=== PATIENT | male | born 1990 | race Caucasian/White ===

== ENCOUNTER 2017-04-01 01:16 | Emergency (ER) | payer BC ==
[~2017-04-01] VITALS: Ht 175.3 cm; Wt 70.5 kg
[2017-04-01 01:22] VITALS: Ht 175.3 cm; Wt 70.5 kg
[2017-04-01] MEDS ORDERED: HYDROmorphONE 1 MG/ML SYG IV STA (01:40)
[2017-04-01] MEDS ORDERED: ONDANSETRON 4 MG INJ IV STA (01:40)
--- NOTE | 2017-04-01 02:12 | RADRPT ---
PROCEDURE: ULTRASOUND LIMITED ABDOMEN CLINICAL INDICATION: 26-year-old male with abdominal pain. TECHNIQUE: Multiple sonographic of the right upper quadrant of the abdomen were obtained. The imag es were reviewed on a PACS workstation. COMPARISON: None. FINDINGS: The pancreas is partially visualized and is otherwise without abnormal echogenicity. The liver displays normal echogenicity. The liver measures 15.6 cm in length. No evidence of intrah epatic biliary ductal dilatation is seen. The portal and hepatic veins are unremarkable. The gallbladder contains echogenic sludge and multiple small shadowing stones. The gallbladder wall thickness is within normal limits measuring 2.6 mm. No pericholecystic fluid is seen. The common b ile duct measures 4.4 mm and is not dilated. The right kidney displays normal echogenicity. The right kidney measures 10.4 cm in length. No calie ctasis or hydronephrosis is seen. No free fluid is seen. IMPRESSION: Cholelithiasis. .Jose Armando Galindo MD, MD Date Time Electronically viewed and signed by .Jose Armando Galindo MD, on 04/01/2017 02:12 .M/
[2017-04-01 02:22] LABS: BASOPHILS % 0.3 % (0.0-2.0); EOSINOPHILS # 0.1 10^3/ul (0.0-0.5); EOSINOPHILS % 1.3 % (0.0-7.0); HEMATOCRIT 44.8 % (42.0-52.0); LYMPHOCYTES # 3.3 10^3/ul (0.8-2.9); LYMPHOCYTES % 49.2 % (15.0-51.0); MEAN CORPUSCULAR HEMOGLOBIN 31.2 pg (29.0-33.0); MEAN CORPUSCULAR HGB CONC 33.5 g/dl (32.0-37.0); MEAN CORPUSCULAR VOLUME 93.1 fl (82.0-101.0); MEAN PLATELET VOLUME 11.4 fl (7.4-10.4); MONOCYTE # 0.4 10^3/ul (0.3-0.9); MONOCYTES % 6.2 % (0.0-11.0); NEUTROPHILS % 42.9 % (39.0-77.0); PLATELET COUNT 181 10^3/UL (140-415); RED BLOOD COUNT 4.81 10^6/ul (4.70-6.10); RED CELL DISTRIBUTION WIDTH 12.4 % (11.5-14.5); WHITE BLOOD COUNT 6.8 10^3/ul (4.8-10.8)
[2017-04-01 02:43] LABS: ALBUMIN 4.7 g/dl (3.3-4.9); ALBUMIN/GLOBULIN RATIO 1.42; BILIRUBIN,INDIRECT 1.4 mg/dl (0-1.1); BILIRUBIN,TOTAL 1.4 mg/dl (0.2-1.3); CALCIUM 9.6 mg/dl (8.4-10.2); CREATININE 1.22 mg/dl (0.61-1.24)
[2017-04-01] MEDS ORDERED: DICY10CA60 PO (02:53)
[2017-04-01] MEDS ORDERED: HYDR-902 PO (02:53)
--- NOTE | 2017-04-01 02:57 | ERD ---
ER Documentation Chief Complaint Date/Time DATE: 04/01/17 TIME: 02:54 Chief Complaint epigastric pain x the last 30 mins HPI This is a 26-year-old male who has had a few months of epigastric pain. The patient had a CT scan of his abdomen and to sonograms but I cannot visualize the gallbladder because it was contracted. She is having the same flareup now with pain in epigastric region described as sharp and crampy and comes in waves. He is nauseated but no vomiting there is some radiation to the back. No diarrhea there is some bloating. Does not know if food makes it worse or better. No chest pain shortness of breath. ROS All systems reviewed and are negative except as per history of present illness. Medications Home Meds Active Scripts Dicyclomine Hcl* (Bentyl*) 10 Mg Capsule, 20 MG PO QID, #60 CAP Prov:SANDRA JACKSONSTEMANUELS Sonal DO 04/01/17 Hydrocodone/Acetaminophen ([place] 10-325 Tablet) 1 Each Tablet, 1 TAB PO Q6H Y for PAIN, #20 TAB Prov:MANUEL JACKSON DO 04/01/17 Allergies Allergies: Coded Allergies: No Known Allergy (Unverified , 04/01/17) PMhx/Soc Medical and Surgical Hx: pt denies Medical Hx, pt denies Surgical Hx History of Surgery: No Anesthesia Reaction: No Hx Neurological Disorder: No Hx Respiratory Disorders: No Hx Cardiac Disorders: No Hx Psychiatric Problems: No Hx Miscellaneous Medical Probl: No Hx Alcohol Use: No Hx Substance Use: No Hx Tobacco Use: No Smoking Status: Never smoker FmHx Family History: No coronary disease Physical Exam Vitals Vital Signs Date Time Temp Pulse Resp B/P Pulse Ox O2 Delivery O2 Flow Rate FiO2 04/01/17 01:22 95.6 64 20 133/86 97 Physical Exam Const: Well-developed, well-nourished Head: Atraumatic, normocephalic Eyes: Normal Conjunctiva, PERRLA, EOMI, normal sclera, no nystagmus ENT: Normal External Ears, Nose and Mouth, moist mucus membranes. Neck: Full range of motion. No meningismus, no lymphadenopathy. Resp: Clear to auscultation bilaterally, no wheezing, rhonchi, rales Cardio: Regular rate and rhythm, no murmurs, S1 S2 present Abd: Soft, moderate epigastric tenderness non distended. Normal bowel sounds, no guarding or rebound, no pulsitile abdominal masses or bruits Skin: No petechiae or rashes, no ecchymosis , no maculopapular rash Back: No midline or flank tenderness Ext: No cyanosis, or edema, FROM x 4, normal inspection, neurovascularly intact x 4 Neur: Awake and alert, STR 5/5 x 4, sensation intact x 4, no focal findings, cerebellum intact Psych: Normal Mood and Affect Result Diagram: 04/01/1713904/01/17 014 Results 24 hrs Laboratory Tests Test 04/01/17 01:40 White Blood Count 6.810^3/ul Red Blood Count 4.8110^6/ul Hemoglobin 15.0g/dl Hematocrit 44.8% Mean Corpuscular Volume 93.1fl Mean Corpuscular Hemoglobin 31.2pg Mean Corpuscular Hemoglobin Concent 33.5g/dl Red Cell Distribution Width 12.4% Platelet Count 55876^3/UL Mean Platelet Volume 11.4fl Neutrophils % 42.9% Lymphocytes % 49.2% Monocytes % 6.2% Eosinophils % 1.3% Basophils % 0.3% Nucleated Red Blood Cells % 0.0/100WBC Neutrophils # (Manual) 2.910^3/ul Lymphocytes # 3.310^3/ul Monocytes # 0.410^3/ul Eosinophils # 0.110^3/ul Basophils # 0.010^3/ul Nucleated Red Blood Cells # 0.010^3/ul Sodium Level 147mmol/L Potassium Level 4.0mmol/L Chloride Level 102mmol/L Carbon Dioxide Level 28mmol/L Anion Gap 21 Blood Urea Nitrogen 21mg/dl Creatinine 1.22mg/dl Glucose Level 115mg/dl Calcium Level 9.6mg/dl Total Bilirubin 1.4mg/dl Direct Bilirubin 0.00mg/dl Indirect Bilirubin 1.4mg/dl Aspartate Amino Transf (AST/SGOT) 71IU/L Alanine Aminotransferase (ALT/SGPT) 59IU/L Alkaline Phosphatase 59IU/L Total Protein 8.0g/dl Albumin 4.7g/dl Globulin 3.30g/dl Albumin/Globulin Ratio 1.42 Lipase 118U/L Current Medications Medications (Trade) Dose Ordered Sig/Gigi Route PRN Reason Start Time Stop Time Status Last Admin Dose Admin Hydromorphone HCl (Dilaudid) 1 mg ONCE STAT IV 04/01/17 01:40 04/01/17 01:41 DC Ondansetron HCl (Zofran Inj) 4 mg ONCE STAT IV 04/01/17 01:40 04/01/17 01:41 DC Procedures/MDM PROCEDURE: ULTRASOUND LIMITED ABDOMEN CLINICAL INDICATION: 26-year-old male with abdominal pain. TECHNIQUE: Multiple sonographic of the right upper quadrant of the abdomen were obtained. The images were reviewed on a PACS workstation. COMPARISON: None. FINDINGS: The pancreas is partially visualized and is otherwise without abnormal echogenicity. The liver displays normal echogenicity. The liver measures 15.6 cm in length. No evidence of intrahepatic biliary ductal dilatation is seen. The portal and hepatic veins are unremarkable. The gallbladder contains echogenic sludge and multiple small shadowing stones. The gallbladder wall thickness is within normal limits measuring 2.6 mm. No pericholecystic fluid is seen. The common bile duct measures 4.4 mm and is not dilated. The right kidney displays normal echogenicity. The right kidney measures 10.4 cm in length. No caliectasis or hydronephrosis is seen. No free fluid is seen. IMPRESSION: Cholelithiasis. .Jose Armando Galindo MD, MD Date Time Electronically viewed and signed by .Jose Armando Galindo MD, on 04/01/2017 02:12 .M/ CC: MANUEL JACKSON DO The patient refused pain medication. The patient's pain is completely resolved at this point. Discussed with him home diet care and follow-up with general surgery Departure Diagnosis: Primary Impression: Gallstones Condition: Stable Patient Instructions: Gallstones Referrals: GABRIELA GRIJALVA APOSTOLOS A. DO Apr 01, 2017 02:56
[2017-04-01 03:20] VITALS: BP 106/70; PULSE 68; RESP 18; TEMP 97.5
== END 2017-04-01 03:20 | disposition home or self-care (01) ==
LOC: E/R 01:16
DX: K80.20 Calculus of gallbladder without cholecystitis without obstruction (principal)
CPT/HCPCS: 36415; 76705; 80053; 83690; 85025; J1170; J2405